=== PATIENT | female | born 1960 | race African-American/Black ===

== ENCOUNTER 2019-06-30 20:40 | Emergency (ER) | payer MEDICAID ==
[~2019-06-30] VITALS: Ht 157.5 cm; Wt 72.1 kg
--- NOTE | 2019-06-30 21:33 | NUR ---
ED Nurse Note: Pt presents to ED c/o fever since 0600 today. pt reports a home temp of 102 at home and that she took daytime cold meds as well as ASA. pt states that she vomited 3 times today, she is also c/o body aches and soreness. pt denies cough, did not get a flu vaccine this year pt is afebrile in triage.
[2019-06-30 21:36] VITALS: BP 115/74
--- NOTE | 2019-06-30 21:44 | Emergency Room Report ---
History of Present Illness General Chief Complaint: Flu Like Symptoms Source: Patient Present Illness HPI This is a 58-year-old female with history blood pressure. She presents with complaint of fever. Onset today. He was 102.6 at home. She has body aches. She has one episode of nausea and vomiting. She ate normally now. No dysuria frequency. No hematuria. No cough or congestion. Over the counter medication made it better. Nothing made it worse. Allergies: Coded Allergies: ACETAMINOPHEN (Verified Allergy, Unknown, 06/30/19) CODEINE (Verified Allergy, Unknown, 06/30/19) Patient History Past Medical History: see triage record, old chart reviewed, HTN Past Surgical History: none Pertinent Family History: none Social History: Denies: smoking Now: No Immunizations: other Reviewed Nursing Documentation: PMH: Agreed; PSxH: Agreed Nursing Documentation-PMH Hx Hypertension: Yes Review of Systems Constitutional: Reports: fever Eye: Denies: eye pain, blurred vision ENT: Denies: ear pain, nose congestion, throat swelling Respiratory: Denies: cough, shortness of breath Cardiovascular: Denies: chest pain, palpitations Gastrointestinal: Reports: nausea, vomiting; Denies: abdominal pain, diarrhea Musculoskeletal: Denies: back pain, joint pain Skin: Denies: rash Neurological: Denies: headache, numbness Endocrine: Denies: increased thirst, increased urine Hematologic/Lymphatic: Denies: easy bruising All Other Systems: negative except mentioned in HPI Physical Exam Vital Signs Date Time Temp Pulse Resp B/P (MAP) Pulse Ox O2 Delivery O2 Flow Rate FiO2 06/30/19 20:52 98.1 97 18 115/74 (88) 98 Room Air Vitals normal Sp02 EP Interpretation: reviewed, normal General Appearance: well appearing, no apparent distress, alert Head: normocephalic, atraumatic Eyes: bilateral eye PERRL, bilateral eye EOMI ENT: hearing grossly normal, normal pharynx Neck: full range of motion, supple, no meningismus Respiratory: chest non-tender, lungs clear, normal breath sounds Cardiovascular #1: regular rate, rhythm, no murmur Gastrointestinal: normal bowel sounds, non tender, no mass, no organomegaly, no bruit, non-distended Musculoskeletal: back normal, normal range of motion, gait/station normal Psychiatric: mood/affect normal Medical Decision Making Diagnostic Impression: Primary Impression: Influenza-like symptoms ER Course Patient presents with flulike symptoms. She looks well. No evidence of sepsis , meningitis, pneumonia or other serious bacterial infection. Even though influenza test is negative, will put her on Tamiflu since there is a prevalence of influenza A now. Last Vital Signs Date Time Temp Pulse Resp B/P (MAP) Pulse Ox O2 Delivery O2 Flow Rate FiO2 06/30/19 21:36 85 18 115/74 98 Room Air 06/30/19 20:52 98.1 Status: improved Disposition: HOME, SELF-CARE Condition: Stable Scripts Oseltamivir Phosphate (Tamiflu) 75 Mg Capsule 75 MG ORAL TWICE A DAY, #10 CAP Prov: Amari Lunsford MD 06/30/19 Ibuprofen* (MOTRIN*) 600 Mg Tablet 600 MG ORAL Q8H PRN for For Pain, #30 TAB 0 Refills Prov: Amari Lunsford MD 06/30/19 Referrals: [facility],REFERR[facility] (PCP) Additional Instructions: Follow-up with your doctor in 7 days. Increase fluids. Return if symptoms worsen. Amari Lunsford MD Jun 30, 2019 21:44
[2019-06-30 22:00] LABS: APPEARANCE,URINE CLEAR; BILIRUBIN, URINE NEGATIVE (NEGATIVE); GLUCOSE, URINE (UA) NEGATIVE (NEGATIVE); KETONES,URINE 2+ (NEGATIVE); LEUKOCYTE ESTERASE ,URINE NEGATIVE (NEGATIVE); NITRITE,URINE NEGATIVE (NEGATIVE); PH,URINE 5 (4.5-8.0); PROTEIN,URINE 1+ (NEGATIVE); UROBILINOGEN,URINE NORMAL MG/DL (0.0-1.0)
[2019-06-30 22:06] LABS: COLOR,URINE YELLOW
[2019-06-30 22:17] LABS: HEMATOCRIT 43.9 % (37.0-47.0); MEAN CORPUSCULAR VOLUME 88 FL (80-99); PLATELET COUNT 193 K/UL (150-450); RED BLOOD COUNT 4.96 M/UL (4.20-5.40); RED CELL DISTRIBUTION WIDTH 13.9 % (11.6-14.8); WHITE BLOOD COUNT 3.5 K/UL (4.8-10.8)
[2019-06-30 22:21] LABS: BASOPHILS % (AUTO) 1.7 % (0.0-2.0); LYMPHOCYTES % (AUTO) 7.7 % (20.0-45.0); MONOCYTES % (AUTO) 4.6 % (1.0-10.0); NEUTROPHILS % (AUTO) 85.9 % (45.0-75.0)
[2019-06-30 22:26] LABS: ANION GAP 10 mmol/L (5-15); BLOOD UREA NITROGEN 13 mg/dL (7-18); CALCIUM 9.5 MG/DL (8.5-10.1); CARBON DIOXIDE 29 MMOL/L (21-32); CHLORIDE 104 MMOL/L (98-107); CREATININE 0.8 MG/DL (0.55-1.30); POTASSIUM 3.5 MMOL/L (3.5-5.1); SODIUM 143 MMOL/L (136-145)
[2019-06-30 22:39] LABS: ALANINE AMINOTRANSFERASE 50 U/L (12-78); ALKALINE PHOSPHATASE 78 U/L (46-116); ASPARTATE AMINO TRANSFERASE 55 U/L (15-37); BILIRUBIN,TOTAL 0.4 MG/DL (0.2-1.0)
[2019-06-30] MEDS ORDERED: TAMIFLU75 MG ORAL (22:52)
[2019-06-30] MEDS ORDERED: IBUPROFEN600 MG ORAL (22:52)
[2019-06-30 23:00] VITALS: BP 115/74
--- NOTE | 2019-06-30 23:00 | NUR ---
ER DISCHARGE NOTE: Patient is cleared to be discharged per ERMD, pt is aox4, on room air, with stable vital signs. pt was given dc and prescription instructions, pt was able to verbalize understanding, pt id band and iv site removed without complications. pt is able to ambulate with steady gait. pt took all belongings.
== END 2019-06-30 23:00 | disposition home or self-care (01) ==
LOC: EMR 21:35
DX: R50.9 Fever, unspecified (principal); Z88.6 Allergy status to analgesic agent; I10 Essential (primary) hypertension
CPT/HCPCS: 36415; 80053; 81003; 85025; 86710; 96360; J7030; Z7502; 99284